=== PATIENT | male | born 1940 | race Caucasian/White ===

== ENCOUNTER 2020-10-08 09:58 | Observation (INO) | payer MEDICARE, BC ==
[2020-10-08] VITALS (13 sets, daily range): BP systolic 98–136; BP diastolic 52–84
[~2020-10-08] VITALS: Ht 165.1 cm; Wt 75.0 kg
[~2020-10-08 09:58] MED LIST: ASPIRIN 81 MG CHEWABLE TABLET PO ONE; DIAZEPAM 5 MG TABLET PO ONE; DiphenhydrAMINE HCL 50 MG CAPSULE PO ONE; SODIUM CHLORIDE 0.9% 1,000 ML ONE
[2020-10-08] MEDS ORDERED: METO25 PO (10:40)
[2020-10-08] MEDS ORDERED: ASPI-989 PO (10:40)
[2020-10-08] MEDS ORDERED: DEXL60CA3 PO (10:40)
[2020-10-08] MEDS ORDERED: AMLO-258 PO (10:40)
[2020-10-08] MEDS ORDERED: ISOS30TA92 PO (10:40)
[2020-10-08] MEDS ORDERED: LEVO75 PO (10:40)
[2020-10-08] MEDS ORDERED: ATOR40TA28 PO (10:40)
[2020-10-08] MEDS ORDERED: CLOP75TA60 PO (10:40)
[2020-10-08] MEDS ORDERED: LISI-894 PO (10:40)
[2020-10-08] MEDS ORDERED: RANO500T3 PO (10:40)
[2020-10-08] MEDS ORDERED: DiphenhydrAMINE HCL 50 MG CAPSULE ONE (10:49)
[2020-10-08] MEDS ORDERED: ASPIRIN 81 MG CHEWABLE TABLET ONE (10:49)
[2020-10-08] MEDS ORDERED: DIAZEPAM 5 MG TABLET ONE (10:49)
[2020-10-08] MEDS: SODIUM CHLORIDE 0.9% 1,000 ML IV SCH (11:23)
[2020-10-08] MEDS ORDERED: LIDOCAINE/PF 1% 30 ML VIAL ONE (11:44)
[2020-10-08] MEDS ORDERED: SODIUM BICARBONATE 50 MEQ/50 ML VIAL ONE (11:44)
[2020-10-08] MEDS ORDERED: IOHEXOL 300 MG/ML 150 ML VIAL ONE ×2 (11:44→12:50)
[2020-10-08] MEDS ORDERED: HEPARIN SODIUM 1000 UNITS/NS 1,000 ML ONE (11:44)
[2020-10-08] MEDS ORDERED: IOHEXOL 300 MG/ML 50 ML VIAL ONE (11:44)
[2020-10-08] MEDS ORDERED: FentaNYL CITRATE PF 100 MCG/2 ML VIAL ONE (12:15)
[2020-10-08] MEDS ORDERED: MIDAZOLAM HCL 2 MG/2 ML VIAL ONE (12:15)
[2020-10-08] MEDS ORDERED: LIDOCAINE 1% 30 ML/SOD BICARB 8.4% 4 ML SQ ONE (12:30)
[2020-10-08] MEDS ORDERED: FentaNYL CITRATE PF 100 MCG/2 ML VIAL IVP ONE ×2 (12:30)
[2020-10-08] MEDS ORDERED: HEPARIN SODIUM 1000 UNITS/NS 1,000 ML IARTER ONE (12:30)
[2020-10-08] MEDS ORDERED: MIDAZOLAM HCL 2 MG/2 ML VIAL IVP ONE ×2 (12:30)
[2020-10-08] MEDS ORDERED: IOHEXOL 300 MG/ML 150 ML VIAL IARTER ONE (12:30)
[2020-10-08] MEDS ORDERED: PHENYLEPHRINE 200 MG/D5%-WATER 250 ML IV PRN (12:45)
[2020-10-08] MEDS ORDERED: SODIUM CHLORIDE 0.9% 500 ML IV ONE (12:45)
[2020-10-08] MEDS ORDERED: IOHEXOL 300 MG/ML 100 ML VIAL ONE (13:33)
[2020-10-08] MEDS ORDERED: TICAGRELOR 90 MG TABLET PO ONE (13:45)
[2020-10-08] MEDS ORDERED: HEPARIN SODIUM,PORCINE 5,000 UNITS/ML VIAL IVP ONE (13:45)
[2020-10-08] MEDS ORDERED: TICAGRELOR 90 MG TABLET ONE (13:49)
[2020-10-08] MEDS ORDERED: MAGNESIUM HYDROXIDE SUSPENSION 30 ML UDCUP PO PRN (17:30)
[2020-10-08] MEDS ORDERED: BISACODYL 10 MG RECTAL RECTAL SUPPOSITORY PR PRN (17:30)
[2020-10-08] MEDS ORDERED: HYDROCODONE/ACETAMINOPHEN 5-325 MG TABLET PO PRN (17:30)
[2020-10-08] MEDS ORDERED: ZOLPIDEM TARTRATE 5 MG TABLET PO PRN (17:30)
[2020-10-08] MEDS ORDERED: ONDANSETRON HCL 4 MG/2 ML VIAL IVP PRN (17:30)
[2020-10-08] MEDS ORDERED: ACETAMINOPHEN 325 MG TABLET PO PRN ×2 (17:30)
[2020-10-08] MEDS ORDERED: MORPHINE SULFATE 2 MG/ML SYRINGE IVP PRN (17:30)
[2020-10-08] MEDS: METOPROLOL TARTRATE 25 MG TABLET PO SCH (21:00)
[2020-10-08] MEDS ORDERED: ATORVASTATIN CALCIUM 40 MG TABLET PO SCH (21:00)
[2020-10-08] MEDS ORDERED: TICAGRELOR 90 MG TABLET PO SCH (21:00)
[2020-10-08] MEDS ORDERED: LISINOPRIL 20 MG TABLET PO SCH (21:00)
[2020-10-08] MEDS: RANOLAZINE 500 MG ER TABLET PO SCH (21:39)
[2020-10-08] MEDS: DOCUSATE SODIUM 100 MG CAPSULE PO SCH (21:40)
[2020-10-08] MEDS: TICAGRELOR 90 MG TABLET PO SCH (21:43)
[2020-10-09] MEDS: SODIUM CHLORIDE 0.9% 1,000 ML IV SCH ×2 (02:44→09:40)
[2020-10-09 04:45] VITALS: BP 104/58
[2020-10-09] MEDS ORDERED: LEVOTHYROXINE SODIUM 75 MCG TABLET PO SCH (06:30)
[2020-10-09 07:06] VITALS: BP 112/66
[2020-10-09] MEDS: DOCUSATE SODIUM 100 MG CAPSULE PO SCH (07:55)
[2020-10-09] MEDS: TICAGRELOR 90 MG TABLET PO SCH (07:56)
[2020-10-09] MEDS: METOPROLOL TARTRATE 25 MG TABLET PO SCH (07:56)
[2020-10-09] MEDS: AmLODIPine BESYLATE 10 MG TABLET PO SCH ×2 (07:57→07:59)
[2020-10-09] MEDS: RANOLAZINE 500 MG ER TABLET PO SCH (07:58)
[2020-10-09 08:02] LABS: BASOPHILS % (AUTO) 0.2 % (0.0-2.0); EOSINOPHILS % (AUTO) 1.5 % (1.0-6.0); HEMATOCRIT 50.7 % (41-53); HEMOGLOBIN 16.7 g/dL (13.5-17.5); LYMPHOCYTES # (AUTO) 1.1 K/uL (1.0-4.8); LYMPHOCYTES % (AUTO) 16.7 % (22.0-44.0); MEAN CORPUSCULAR HEMOGLOBIN 27.1 pg (26.0-34.0); MEAN CORPUSCULAR VOLUME 82 fL (80-100); MONOCYTES # (AUTO) 0.7 K/uL (0.1-1.0); MONOCYTES % (AUTO) 10.4 % (2.0-9.0); NEUTROPHILS # (AUTO) 4.6 K/uL (1.8-7.7); NEUTROPHILS % (AUTO) 71.2 % (40.0-70.0); PLATELET COUNT (AUTO) 135 K/uL (150-450); RED BLOOD CELL COUNT(AUTO) 6.17 MIL/uL (4.50-5.90); RED CELL DISTRIBUTION WIDTH 13.6 % (11.5-14.5)
[2020-10-09 08:32] LABS: CALCIUM, TOTAL 8.9 mg/dL (8.8-10.5); CREATININE 1.2 mg/dL (0.60-1.30); POTASSIUM 4.8 mmol/L (3.5-5.1)
[2020-10-09] MEDS ORDERED: ISOSORBIDE MONONITRATE 30 MG ER TABLET PO SCH (09:00)
[2020-10-09] MEDS ORDERED: ATORVASTATIN CALCIUM 40 MG TABLET PO SCH (09:00)
[2020-10-09] MEDS ORDERED: ASPIRIN 325 MG TABLET PO SCH (09:00)
[2020-10-09 11:28] VITALS: BP 108/54
[2020-10-09] MEDS ORDERED: TICA90TA PO (14:27)
== END 2020-10-09 15:00 | disposition home or self-care (01) ==
LOC: CATHLAB 09:58 → INTOOBSV 09:59 → 5S 09:59
PROVIDERS: ADMIT Internal Medicine Interventional Cardiology; ATTEND Internal Medicine Interventional Cardiology
DX: I25.110 Atherosclerotic heart disease of native coronary artery with unstable angina pectoris (principal); I10 Essential (primary) hypertension; E78.5 Hyperlipidemia, unspecified; E03.9 Hypothyroidism, unspecified; I48.91 Unspecified atrial fibrillation; Z95.5 Presence of coronary angioplasty implant and graft; Z95.818 Presence of other cardiac implants and grafts; Z79.82 Long term (current) use of aspirin; Z79.899 Other long term (current) drug therapy
CPT/HCPCS: 36415; 80048; 85025; 92920; 92921; 92928; 92929; 93005; 93458; 96360; 96361; 99219 ×2; C1760; C1874; C1887; J1644; J2250; J2370; J3010; J3490 ×2; J7030 ×2; Q9967 ×3